=== PATIENT | female | born 1985 | race Two or more races ===

== ENCOUNTER 2016-10-09 19:44 | Inpatient (IN) | payer OTHER ==
[2016-10-09 20:23] LABS: Hematocrit 31 % (35-47); Hemoglobin 10.4 g/dl (12.0-16.0); Mean Corpuscular HGB Conc 33 g/dl (31-36); Mean Corpuscular Hemoglobin 28 pg (27-31); Mean Corpuscular Volume 84 fL (80-97); Mean Platelet Volume 9 um3 (7.4-10.4); Red Blood Count 3.72 10^6/ul (4.0-5.4); Red Cell Distribution Width 15 % (10.5-15); White Blood Count 11.1 10^3/ul (3.5-10.8)
[2016-10-09] MEDS ORDERED: OBEPIDURAL* 0 ML ONE (20:23)
[2016-10-09] MEDS ORDERED: fentaNYL* 50 MCG/ML 2 ML VIAL (100 MCG VIAL) ONE (20:34)
[2016-10-09] MEDS ORDERED: Phenylephrine IV* 40 MCG/ML 10 ML SYRINGE IV PUSH PRN (20:54)
[2016-10-09] MEDS ORDERED: Famotidine TAB* 20 MG PO PRN (20:54)
[2016-10-09] MEDS ORDERED: Sodium Citrate/Citric Acid* 15 ML UDC PO PRN (20:54)
[2016-10-09] MEDS ORDERED: Naloxone* 0.4 MG/ML 1 ML VIAL IV PRN (21:04)
[2016-10-09] MEDS ORDERED: Oxytocin in LR* 20 UNITS/1,000 ML BAG IVPB ONE (22:13)
[2016-10-09] MEDS ORDERED: Witch Hazel PAD* JAR TOPICAL PRN (22:24)
[2016-10-09] MEDS ORDERED: RHO D Immune Globulin (HUMAN)* 300 MCG = 1,500 I.U. INJ IM ONE (22:24)
[2016-10-09] MEDS ORDERED: Dibucaine 1% 28.35 GM TUBE PR PRN (22:24)
[2016-10-09] MEDS ORDERED: Glycerin ADULT SUPP PR PRN (22:24)
[2016-10-09] MEDS ORDERED: Nicotine Inhaler* 10 MG AMP INH PRN (22:42)
[2016-10-09] MEDS ORDERED: Mouth Piece, Nicotine* 1 EACH CARTRIDGE INH PRN (22:42)
[2016-10-09] MEDS ORDERED: Oxytocin in LR* 20 UNITS/1,000 ML BAG IVPB SCH (23:00)
[2016-10-09] MEDS: Ibuprofen TAB* 600 MG PO PRN (23:19)
[2016-10-10] MEDS: Acetaminophen TAB* 325 MG PO PRN ×2 (02:29→10:59)
[2016-10-10] MEDS: Ibuprofen TAB* 600 MG PO PRN ×3 (07:51→21:15)
[2016-10-10] MEDS ORDERED: Simethicone CHEW TAB* 80 MG PO SCH (08:30)
[2016-10-10] MEDS: Docusate CAP* 100 MG PO SCH ×3 (08:50→21:15)
[2016-10-10 08:53] LABS: Hematocrit 27 % (35-47); Hemoglobin 8.7 g/dl (12.0-16.0); Mean Corpuscular HGB Conc 33 g/dl (31-36); Mean Corpuscular Hemoglobin 28 pg (27-31); Mean Corpuscular Volume 85 fL (80-97); Mean Platelet Volume 9 um3 (7.4-10.4); Red Blood Count 3.13 10^6/ul (4.0-5.4); Red Cell Distribution Width 15 % (10.5-15); White Blood Count 11.7 10^3/ul (3.5-10.8)
[2016-10-10] MEDS ORDERED: RHO D Immune Globulin (HUMAN)* 300 MCG = 1,500 I.U. INJ IM ONE (10:20)
[2016-10-10] MEDS: Ferrous Gluconate TAB* 324 MG TAB PO SCH ×2 (10:36→21:15)
[2016-10-11] MEDS ORDERED: medroxyPROGESTERone ACETATE (DEPOT)* 150 MG/ML 1 ML IM ONE (08:07)
[2016-10-11 08:28] VITALS: BP 105/59
[2016-10-11] MEDS: Ferrous Gluconate TAB* 324 MG TAB PO SCH (08:46)
[2016-10-11] MEDS: Docusate CAP* 100 MG PO SCH (08:46)
[2016-10-11] MEDS ORDERED: Influenza VAC *QUAD* 2016-17* 0.5 ML SYRINGE IM ONE (10:26)
== END 2016-10-11 17:13 | disposition home or self-care (01) | DRG 560 ==
LOC: MCHOBOUT 19:44 → MCHOB 20:03
PROVIDERS: ADMIT Midwife; ATTEND Midwife
PROC: 10E0XZZ Delivery of Products of Conception, External Approach (ICD-10-PCS; principal; 2016-10-09)
PROC: 10907ZC Drainage of Amniotic Fluid, Therapeutic from Products of Conception, Via Natural or Artificial Opening (ICD-10-PCS; 2016-10-09)
DX: O69.81X0 Labor and delivery complicated by cord around neck, without compression, not applicable or unspecified (principal); D64.9 Anemia, unspecified; O90.81 Anemia of the puerperium; Z87.442 Personal history of urinary calculi; Z3A.39 39 weeks gestation of pregnancy; Z37.0 Single live birth; Z88.0 Allergy status to penicillin
CPT/HCPCS: 36415; 85025; 85461; 86850; 86900; 86901; 90686; A9270-GY; J1050; J2790; J3010

== ENCOUNTER → 2018-01-19 17:32 | Emergency (ER) | payer MEDICAID ==
[~2018-01-19 17:32] MED LIST: Diazepam TAB(*) 5 MG PO ONE; Famotidine TAB* 20 MG PO ONE; diPHENhydraMINE PO* 25 MG PO ONE; predniSONE TAB* 20 MG PO ONE
--- NOTE | 2018-01-19 20:46 | ED ---
Skin Complaint - HPI Summary HPI Summary: Complains of redness, sensation of swelling and tightness to skin of the head and top of ears 2 days, and pain in paraspinal muscles of neck pain shoulders times a days. History of dying her hair 2 days ago. Denies trauma, fever, cough, sore throat, ear pain, AVILA, vision change, focal deficits, CP, SOB, N/V/D , abdominal pain, change in urine, change in BM. Medical history is none. - History of Current Complaint Chief Complaint: EDGeneral Time Seen by Provider: 01/19/18 18:42 Stated Complaint: HEAD PAIN Hx Obtained From: Patient Onset/Duration: Started Days Ago Skin Exposure Onset/Duration: Days Ago Timing: Constant Current Severity: None Pain Intensity: 0 Pain Scale Used: 0-10 Numeric Skin Location: Discrete Aggravating Symptom(s): Nothing Alleviating Symptom(s): Nothing - Allergy/Home Medications Allergies/Adverse Reactions: Allergies Allergy/AdvReac Type Severity Reaction Status Date / Time Penicillins Allergy Hives Verified 01/19/18 17:38 PMH/Surg Hx/FS Hx/Imm Hx Previously Healthy: Yes Endocrine/Hematology History: Denies: Hx Anticoagulant Therapy Respiratory History: Reports: Hx Asthma - hx Denies: Hx Chronic Bronchitis, Hx Chronic Obstructive Pulmonary Disease (COPD ), Hx Cystic Fibrosis, Hx Lung Cancer, Hx Pleural Effusion, Hx Pneumonia, Hx Pulmonary Edema, Hx Pulmonary Embolism, Hx Seasonal Allergies, Hx Sleep Apnea, Other Respiratory Problems/Disorders History: Reports: Hx Kidney Stones - stones, Other Problems/Disorders - hydronephrosis, shunts placed this , hx stones Denies: Hx Acute Renal Failure, Hx Benign Prostatic Hyperplasia, Hx Chronic Renal Failure, Hx Dialysis, Hx Kidney Infection Musculoskeletal History: Reports: Hx Back Problems Sensory History: Denies: Hx Contacts or Glasses, Hx Hearing Aid Opthamlomology History: Denies: Hx Contacts or Glasses - Surgical History Surgery Procedure, Year, and Place: KIDNEY STONES X 3 LITHOTRIPSY 05/2016 Hx Anesthesia Reactions: No Infectious Disease History: No Infectious Disease History: Denies: Hx Clostridium Difficile, Hx Hepatitis, Hx Human Immunodeficiency Virus (HIV), Hx Shingles, Hx Tuberculosis, Traveled Outside the [place] in Last 30 Days - Social History Alcohol Use: None Alcohol Amount: 2 X MONTHLY Substance Use Type: Reports: None Smoking Status (MU): Light Every Day Tobacco Smoker Type: Cigarettes Amount Used/How Often: 4 CIGS QD Have You Smoked in the Last Year: Yes Review of Systems Constitutional: Negative Eyes: Negative ENT: Negative Cardiovascular: Negative Respiratory: Negative Gastrointestinal: Negative Genitourinary: Negative Musculoskeletal: Negative Skin: Negative Neurological: Negative Psychological: Normal All Other Systems Reviewed And Are Negative: Yes Physical Exam - Summary Physical Exam Summary: No indication of mastoiditis. Redness to skin of scalp and top of bilateral years. No swelling to head or face noted. Tenderness in bilateral paraspinal muscles of C-spine and bilateral trapezius. PMS intact distally. Full range of motion of jaw. Triage Information Reviewed: Yes Vital Signs On Initial Exam: Initial Vitals Temp Pulse Resp BP Pulse Ox 97.7 F 79 16 129/88 99 01/19/18 17:35 01/19/18 17:35 01/19/18 17:35 01/19/18 17:35 01/19/18 17:35 Vital Signs Reviewed: Yes Appearance: Positive: Well-Appearing Skin: Positive: Warm Head/Face: Positive: Normal Head/Face Inspection Eyes: Positive: Normal ENT: Positive: Normal ENT inspection Neck: Positive: Tenderness @ Respiratory/Lung Sounds: Positive: Clear to Auscultation Cardiovascular: Positive: Normal Abdomen Description: Positive: Nontender Musculoskeletal: Positive: Normal Neurological: Positive: Normal Psychiatric: Positive: Normal AVPU Assessment: Alert - [place] Coma Scale Best Eye Response: 4 - Spontaneous Best Motor Response: 6 - Obeys Commands Best Verbal Response: 5 - Oriented Coma Scale Total: 15 Diagnostics - Vital Signs Vital Signs Temp Pulse Resp BP Pulse Ox 01/19/18 17:35 97.7 F 79 16 129/88 99 - Laboratory Lab Statement: Any lab studies that have been ordered have been reviewed, and results considered in the medical decision making process. Course/Dx - Course Course Of Treatment: Complains of redness, sensation of swelling and tightness to skin of the head and top of ears 2 days, and pain in paraspinal muscles of neck pain shoulders times a days. History of dying her hair 2 days ago. Denies trauma, fever, cough, sore throat, ear pain, AVILA, vision change, focal deficits, CP, SOB, N/V/D, abdominal pain, change in urine, change in BM. Medical history is none. No indication of mastoiditis. Redness to skin of scalp and top of bilateral years. No swelling to head or face noted. Tenderness in bilateral paraspinal muscles of C-spine and bilateral trapezius. PMS intact distally. Full range of motion of jaw. Irritation on scalp improved with prednisone, Pepcid, Benadryl. Neck pain resolved with Valium 5 mg. Rx for prednisone. Rx for Valium. - Diagnoses Provider Diagnoses: Muscle spasm, Urticaria Discharge - Sign-Out/Discharge Documenting (check all that apply): Patient Departure - Discharge Plan Condition: Stable Disposition: HOME Prescriptions: Diazepam TAB(*) [Valium TAB(*)] 5 mg PO TID PRN #4 tab MDD 3 tabs PRN Reason: Pain predniSONE TAB* [Deltasone 20 MG TAB*] 40 mg PO DAILY 5 Days #5 tab Patient Education Materials: Urticaria (ED), Muscle Spasm (ED) Referrals: Bradley Stroud MD [Primary Care Provider] - Additional Instructions: Follow-up with primary care. Return to the ED for any new or worsening symptoms - Billing Disposition and Condition Condition: STABLE Disposition: Home
[2018-01-19 22:00] VITALS: BP 105/69
== END | disposition home or self-care (01) ==
LOC: ED 17:32
DX: L50.9 Urticaria, unspecified (principal); M62.838 Other muscle spasm; F17.210 Nicotine dependence, cigarettes, uncomplicated; Z88.0 Allergy status to penicillin
CPT/HCPCS: 99282; A9270-GY; J7512

== ENCOUNTER 2019-05-23 02:13 | Emergency (ER) | payer OTHER ==
[2019-05-23] MEDS ORDERED: Diphenoxylat/Atrop 2.5-0.025M* 1 TAB PO ONE (02:30)
[2019-05-23] MEDS: NS 0.9% 1000 ML** 2,000 ML IV ONE (02:48)
--- NOTE | 2019-05-23 02:54 | ED ---
GI/ HPI - HPI Summary HPI Summary: Pt is a 34 y/o F presenting to the ED with a chief complaint of GI issues. Pt states she has been vomiting since yesterday, 05/22/19, and has had diarrhea for about 2 hours. She reports some pain with breathing, SOB, some abd pain, cough, and nasal discharge. She was just able to eat something today, and reports extreme fatigue. - History of Current Complaint Chief Complaint: EDNauseaVomitDiarrh Time Seen by Provider: 05/23/19 02:25 Stated Complaint: SICK PER PT Hx Obtained From: Patient Onset/Duration: Started Days Ago, Still Present Timing: Constant, Lasting Days Severity: Moderate Current Severity: Severe Pain Intensity: 10 Location of Pain: Diffuse Associated Signs and Symptoms: Positive: Nausea, Vomiting, Diarrhea, Abdominal Pain Aggravating Factor(s): Nothing Alleviating Factor(s): Nothing - Allergy/Home Medications Allergies/Adverse Reactions: Allergies Allergy/AdvReac Type Severity Reaction Status Date / Time Penicillins Allergy Hives Verified 05/23/19 02:18 PMH/Surg Hx/FS Hx/Imm Hx Previously Healthy: Yes Endocrine/Hematology History: Denies: Hx Anticoagulant Therapy Respiratory History: Reports: Hx Asthma - hx Denies: Hx Chronic Bronchitis, Hx Chronic Obstructive Pulmonary Disease (COPD ), Hx Cystic Fibrosis, Hx Lung Cancer, Hx Pleural Effusion, Hx Pneumonia, Hx Pulmonary Edema, Hx Pulmonary Embolism, Hx Seasonal Allergies, Hx Sleep Apnea, Other Respiratory Problems/Disorders History: Reports: Hx Kidney Stones - stones, Other Problems/Disorders - hydronephrosis, shunts placed this , hx stones Denies: Hx Acute Renal Failure, Hx Benign Prostatic Hyperplasia, Hx Chronic Renal Failure, Hx Dialysis, Hx Kidney Infection Musculoskeletal History: Reports: Hx Back Problems Sensory History: Denies: Hx Contacts or Glasses, Hx Hearing Aid Opthamlomology History: Denies: Hx Contacts or Glasses - Surgical History Surgery Procedure, Year, and Place: KIDNEY STONES X 3 LITHOTRIPSY 05/2016 Hx Anesthesia Reactions: No Infectious Disease History: No Infectious Disease History: Denies: Hx Clostridium Difficile, Hx Hepatitis, Hx Human Immunodeficiency Virus (HIV), Hx Shingles, Hx Tuberculosis, Traveled Outside the [place] in Last 30 Days - Family History Known Family History: Negative: Diabetes - Social History Alcohol Use: Rare Alcohol Amount: 2 X MONTHLY Hx Substance Use: No Substance Use Type: Reports: None Hx Tobacco Use: Yes Smoking Status (MU): Light Every Day Tobacco Smoker Type: Cigarettes Amount Used/How Often: 4 CIGS QD Have You Smoked in the Last Year: Yes Review of Systems Positive: Fatigue Positive: Nasal Discharge Positive: Shortness Of Breath, Cough Positive: Abdominal Pain, Vomiting, Diarrhea, Nausea All Other Systems Reviewed And Are Negative: Yes Physical Exam - Summary Physical Exam Summary: Appearance: Well-appearing, Well-nourished, lying in bed comfortably Skin: Warm, dry, no obvious rash Eyes: sclera anicteric, no conjunctival pallor ENT: mucous membranes moist, pharynx appears normal Neck: Supple, nontender Respiratory: Clear to auscultation, no signs of respiratory distress Cardiovascular: Normal S1, S2. No murmurs. Normal distal pulses in tibial and radial bilaterally. Abdomen: Soft, nontender, normal active bowel sounds present Musculoskeletal: Normal, Strength/ROM Intact Neurological: A&Ox3, awake and alert, mentation is normal, speech is fluent and appropriate Psychiatric: affect is normal, does not appear anxious or depressed Triage Information Reviewed: Yes Vital Signs On Initial Exam: Initial Vitals Temp Pulse Resp BP Pulse Ox 99 F 134 16 118/87 98 05/23/19 02:14 05/23/19 02:14 05/23/19 02:14 05/23/19 02:14 05/23/19 02:14 Vital Signs Reviewed: Yes Procedures - Sedation Patient Received Moderate/Deep Sedation with Procedure: No Diagnostics - Vital Signs Vital Signs Temp Pulse Resp BP Pulse Ox 05/23/19 02:22 103 121/86 97 05/23/19 02:14 99 F 134 16 118/87 98 - Laboratory Result Diagrams: 05/23/19 03:09 05/23/19 03:09 Lab Statement: Any lab studies that have been ordered have been reviewed, and results considered in the medical decision making process. GIGU Course/Dx - Course Course Of Treatment: Pt is a 34 y/o F presenting to the ED with a chief complaint of GI issues. Pt states she has been vomiting since yesterday, , and has had diarrhea for about 2 hours. She reports some pain with breathing , SOB, some abd pain, cough, and nasal discharge. She was just able to eat something today, and reports extreme fatigue. Pt's physical exam is nml. Pt will be d/c'ed with dx of diarrhea. - Diagnoses Provider Diagnoses: Diarrhea Discharge ED - Sign-Out/Discharge Documenting (check all that apply): Patient Departure - Discharge Plan Condition: Good Disposition: HOME Prescriptions: Diphenoxylat/Atrop 2.5-0.025M* [Lomotil TAB*] 1 tab PO QID PRN #10 tab MDD 4 PRN Reason: Diarrhea Patient Education Materials: Acute Diarrhea (ED) Referrals: Bradley Stroud MD [Primary Care Provider] - - Billing Disposition and Condition Condition: GOOD Disposition: Home - Attestation Statements Document Initiated by Scribe: Yes Documenting Scribe: Era Louie Provider For Whom Brandy is Documenting (Include Credential): Mark Rojas MD. Scribe Attestation: Era Chavez scribed for Mark Rojas MD. on 05/23/19 at 0535. Scribe Documentation Reviewed: Yes Provider Attestation: The documentation as recorded by the Era bazan accurately reflects the service I personally performed and the decisions made by Mark douglass MD. Status of Scribe Document: Viewed
[2019-05-23 03:17] LABS: ABS Eosinophils 0.3 10^3/ul (0-0.6); ABS Lymphocytes 1.2 10^3/ul (1.0-4.8); ABS Monocytes 0.6 10^3/ul (0-0.8); ABS Neutrophils 7.6 10^3/ul (1.5-7.7); Eosinophil % 2.9 %; Hematocrit 39 % (35-47); Hemoglobin 13.5 g/dL (12.0-16.0); Lymphocyte % 11.9 %; Mean Corpuscular HGB Conc 35 g/dL (31-36); Mean Corpuscular Hemoglobin 33 pg (27-31); Mean Corpuscular Volume 94 fL (80-97); Mean Platelet Volume 7.8 fL (7.4-10.4); Platelet Count 242 10^3/uL (150-450); Red Blood Count 4.15 10^6 /uL (3.70-4.87); Red Cell Distribution Width 13 % (10-15); White Blood Count 9.7 10^3/uL (3.5-10.8)
[2019-05-23] MEDS ORDERED: Pseudoephedrine TAB* 60 MG PO ONE (03:23)
[2019-05-23 03:37] LABS: ALT 13 U/L (7-52); AST 19 U/L (13-39); Albumin 4.4 g/dL (3.2-5.2); Albumin/Globulin Ratio 1.4 (1-3); Alkaline Phosphatase 53 U/L (34-104); Anion Gap 8 mmol/L (2-11); BUN/Creatinine Ratio 20.9 (8-20); Blood Urea Nitrogen 14 mg/dL (6-24); CO2 Carbon Dioxide 24 mmol/L (22-32); Calcium 9.1 mg/dL (8.6-10.3); Chloride 105 mmol/L (101-111); EGFR African American 120.5 (>60); EGFR Non-African American 99.6 (>60); Globulin 3.1 g/dL (2-4); Glucose 102 mg/dL (70-100); Potassium 4.1 mmol/L (3.5-5.0); Sodium 137 mmol/L (135-145); Total Protein 7.5 g/dL (6.4-8.9)
[2019-05-23 03:44] LABS: HCG Pregnancy < 0.60 mIU/mL
[2019-05-23 04:50] VITALS: BP 124/82
== END 2019-05-23 04:50 | disposition home or self-care (01) ==
LOC: ED 02:13
DX: R19.7 Diarrhea, unspecified (principal); Z88.0 Allergy status to penicillin; F17.210 Nicotine dependence, cigarettes, uncomplicated; Z87.442 Personal history of urinary calculi
CPT/HCPCS: 36415; 80053; 84702; 85025; 96360; 96361; 99283; A9270-GY